=== PATIENT | male | born 1955 | race Caucasian/White ===

== ENCOUNTER → 2018-03-31 | Outpatient (CLI) | payer OTHER ==
--- NOTE | 2018-03-31 15:02 | PCVCIMAG ---
APPROVED REPORT Patient Location: Echo lab, Treadmill Stress Test Room #: Stress Nurse: Sugar Jiang RN Indications; Hyperlipidemia. Fatigue. The patient exercised according to the JACQUELINE for 6:00 Mins, achieving a work level of Max. METS 7.00. The resting heart rate of 64bpm roel to a maximal heart rate of 151bpm. This value represents 96% of the maximal, age predicted heart rate. The resting blood pressure of 100/70mmHg, roel to a maximum blood pressure of 180/80mmHg. The exercise test was stopped due to Fatil[place],Dyspnea, target heart rate aachieved. Resting EKG: Sinus rhythm normal tracing Stress EKG: No dysrhythmias. No ST segment shifts diagnostic of myocardial ischemia. Conclusion 1. Maximal treadmill exercise study negative for exercise-induced myocardial ischemia. 2. No subjective signs of ischemia such as chest pain or anginal-like symptoms. No ischemic or echocardiographic changes. No dysrhythmias. 3. The study was associated with average exercise capacity (7.0 METS)
--- NOTE | 2018-03-31 15:07 | PCVCIMAG ---
APPROVED REPORT Study performed: 03/31/2018 13:35:12 EXAM: Comprehensive 2D, Doppler, and color-flow Echocardiogram Patient Location: Echo lab Status: routine BSA: 1.86 HR: 80 bpmBP: 100/70 mmHg Rhythm: NSR Other Information Study Quality: Good Risk Factors: Cardiac Risk Factors: HTN, Hyperlipidemia Indications Fatigue Hypertension/HDD 2D Dimensions IVSd: 8.26 (7-11mm)LVOT Diam: 20.65 (18-24mm) LVDd: 46.29 mm PWd: 9.11 (7-11mm)Ascending Ao: 29.73 (22-36mm) LVDs: 32.82 (25-40mm) Left Atrium: 37.84 (27-40mm) Aortic Root: 28.98 mm LV Single Plane 4CH: 57.32 % LV Single Plane 2CH: 61.65 % Biplane EF: 59.1 % Volumes Left Atrial Volume (Systole) Single Plane 4CH: 31.26 mLSingle Plane 2CH: 27.02 mL LA ESV Index: 16.00 mL/m2 Aortic Valve AoV Peak Shaan.: 1.31 m/s AO Peak Gr.: 6.91 mmHgLVOT Max P.53 mmHg LVOT Max V: 0.94 m/s [id number] Vmax: 2.39 cm2 Mitral Valve E/A Ratio: 1.0 MV Decel. Time: 205.07 ms MV E Max Shaan.: 0.74 m/s MV A Shaan.: 0.76 m/s Pulmonary Valve PV Peak Gr.: 3.47 mmHg Pulmonary Vein P Vein S: 0.54 m/sP Vein A: 0.38 m/s P Vein D: 0.43 m/sP Vein A Dur.: 65.7 msec P Vein S/D Ratio: 1.26 Left Ventricle The left ventricle is normal size. There is normal LV segmental wall motion. There is normal left ventricular wall thickness. Left ventricular systolic function is normal. The left ventricular ejection fraction is within the normal range. LVEF is 60%. The left ventricular diastolic function is normal. Right Ventricle The right ventricle is normal size. The right ventricular systolic function is normal. Atria The left atrium size is normal. The right atrium size is normal. Aortic Valve The aortic valve is normal in structure. Trace aortic regurgitation. There is no aortic valvular stenosis. Mitral Valve The mitral valve is normal in structure. There is no mitral valve regurgitation noted. No evidence of mitral valve stenosis. Tricuspid Valve The tricuspid valve is normal in structure. There is no tricuspid valve regurgitation noted. Pulmonic Valve The pulmonary valve is normal in structure. There is no pulmonic valvular regurgitation. Great Vessels The aortic root is normal in size. IVC is normal in size and collapses >50% with inspiration. Pericardium There is no pericardial effusion. <Conclusion> Left ventricular systolic function is normal. There is normal LV segmental wall motion. LVEF 60%. The aortic valve is normal in structure. Trace aortic regurgitation, not stenosis The mitral valve is normal in structure. No mitral valve regurgitation. Pulmonary artery pressure could not be reliably ascertained There is no pericardial effusion.
== END | disposition home or self-care (01) ==
LOC: PCVCIMAG 13:10
PROVIDERS: ATTEND Internal Medicine
DX: I10 Essential (primary) hypertension (principal); E78.5 Hyperlipidemia, unspecified; R53.82 Chronic fatigue, unspecified; A69.20 Lyme disease, unspecified
CPT/HCPCS: 93017; 93306